=== PATIENT | male | born 1995 | race Asian ===

== ENCOUNTER 2018-09-11 16:27 | Emergency (ER) | payer SELFPAY ==
[~2018-09-11] VITALS: Ht 160 cm; Wt 52.3 kg
[2018-09-11] MEDS ORDERED: ACETAMINOPHEN 500 MG TABLET PO ONE (17:00)
[2018-09-11] MEDS ORDERED: LIDOCAINE 5% TRANSDERMAL PATCH TD ONE (17:00)
[2018-09-11] MEDS ORDERED: PROPARACAINE HCL 0.5% 15 ML OPHTHALMIC SOLUTION OS ONE (17:30)
[2018-09-11] MEDS ORDERED: FLUORESCEIN SODIUM 1 MG STRIP OS ONE (17:30)
[2018-09-11 18:23] VITALS: BP 120/64
== END 2018-09-11 18:29 | disposition home or self-care (01) ==
LOC: EMS 16:30
DX: S16.1XXA Strain of muscle, fascia and tendon at neck level, initial encounter (principal); S09.93XA Unspecified injury of face, initial encounter; V49.40XA Driver injured in collision with unspecified motor vehicles in traffic accident, initial encounter; Y93.89 Activity, other specified; Y92.89 Other specified places as the place of occurrence of the external cause; Y99.8 Other external cause status